=== PATIENT | male | born 1940 | race Caucasian/White ===

== ENCOUNTER → 2016-11-27 | Outpatient (CLI) | payer MEDICARE ==
[~2016-11-27] MED LIST: GADOBUTROL 10 MMOL/10 ML VIAL ONE
== END | disposition home or self-care (01) ==
LOC: CFH 08:51
PROVIDERS: ATTEND Urology
DX: N40.1 Benign prostatic hyperplasia with lower urinary tract symptoms (principal); R97.20 Elevated prostate specific antigen [PSA]
CPT/HCPCS: 72197; 82565; A9585

== ENCOUNTER → 2018-02-19 | Outpatient (CLI) | payer MEDICARE | END | disposition home or self-care (01) | LOC: CFH 11:11 | PROVIDERS: ATTEND Family Medicine | DX: M77.32 Calcaneal spur, left foot (principal); Q70.22 Fused toes, left foot; M79.89 Other specified soft tissue disorders ==

== ENCOUNTER → 2020-02-09 | Outpatient (CLI) | payer MEDICARE ==
[~2020-02-09] MED LIST changes: -GADOBUTROL 10 MMOL/10 ML VIAL ONE; +LOVA20TA2 PO; +OMNIPAQUE 350 MG/ML, 75ML BOTTLE ONE
[2020-02-09 14:34] LABS: ANION GAP 7 mmol/L (5-15); CHLORIDE 105 mmol/L (98-107)
[2020-02-09 14:36] LABS: CREATININE 1.04 mg/dL (0.7-1.3)
== END | disposition home or self-care (01) ==
LOC: CFH 13:59
PROVIDERS: ATTEND Emergency Medicine
DX: R10.12 Left upper quadrant pain (principal); J84.10 Pulmonary fibrosis, unspecified; R07.81 Pleurodynia
CPT/HCPCS: 36415; 71260; 80048; Q9967